=== PATIENT | female | born 1990 | race Caucasian/White ===

== ENCOUNTER 2024-01-15 10:51 | Emergency (ER) | payer MEDICAID ==
[~2024-01-15] VITALS: Ht 165.1 cm; Wt 81.0 kg
[2024-01-15 11:10] VITALS: O2SAT 100
[2024-01-15 11:12] VITALS: BP 110/80; PULSE 76; RESP 18; TEMP 98.5; O2SAT 99
[2024-01-15 12:24] LABS: CHLORIDE 107 mEq/L (98-107); POTASSIUM 3.3 mEq/L (3.5-5.1); SODIUM 138 mEq/L (136-145)
[2024-01-15 12:25] LABS: CALCIUM 9.8 mg/dL (8.7-10.4); CARBON DIOXIDE 25 mEq/L (21-32)
[2024-01-15 12:30] LABS: CREATININE 0.7 mg/dL (0.6-1.0); GLUCOSE 93 mg/dL (70-105); UREA NITROGEN BLOOD 7 mg/dL (9-23)
[2024-01-15 12:33] LABS: BASOPHILS % 0.6 % (0.0-2.0); EOSINOPHILS % 2.2 % (0.0-5.0); HEMATOCRIT. 38.8 % (36.0-48.0); HEMOGLOBIN. 12.8 g/dL (12.0-16.0); LYMPHOCYTES % 25.9 % (20.0-50.0); MEAN CORPUSCULAR HEMOGLOBIN 27.9 pg (28.0-32.0); MEAN CORPUSCULAR VOLUME 84.6 fL (81.0-99.0); MONOCYTES % 10.1 % (2.0-8.0); NEUTROPHILS % 61.2 % (40.0-76.0); PLATELET 291 x1000/uL (130-400); RED BLOOD CELL COUNT 4.59 mill/uL (4.2-5.4); RED CELL DISTRIBUTION WIDTH 13.5 % (11.6-14.6); WHITE BLOOD COUNT 7.5 x1000/uL (4.5-11.0)
[2024-01-15 12:49] LABS: B-HCG QUANTITATIVE 44022 mIU/mL (<3)
== END 2024-01-15 16:15 | disposition home or self-care (01) ==
LOC: ER 10:51
DX: O03.9 Complete or unspecified spontaneous abortion without complication (principal)
CPT/HCPCS: 36415; 76801; 80048; 81025; 84702; 85025; 86850; 86900; 99284